=== PATIENT | female | born 1970 | race Caucasian/White ===

== ENCOUNTER 2021-10-10 15:35 | Outpatient (CLI) | payer BC, SELFPAY ==
--- NOTE | ~2021-10-10 | CT_ITS ---
EXAMINATION: CT sinus wo con EXAM DATE: 10/10/2021 16:01 INDICATION: J32.9 - Chronic sinusitis, unspecified. TECHNIQUE: Spiral CT of the sinuses was acquired in the axial plane. Coronal and sagittal reformatte d images were also reviewed. The dose-length product (DLP) for this examination was 276.23 mGy-cm. Iterative reconstruction (ASIR) was used as dose reduction technique. There is no prior study for co mparison. FINDINGS: The sinuses are normally developed. The sinuses are well aerated. The ostiomeatal unit s are patent. There is no sinus wall thickening. There is mild left nasal septal deviation. The mastoid air cells and middle ears are well aerated. External auditory canals are patent. The orbi ts and visualized soft tissues are unremarkable. IMPRESSION: Mild leftward nasal septal deviation. Clear sinuses. Reviewed, dictated and finalized at location A. T MANAGER ASSISTANT
== END 2021-10-10 15:36 | disposition home or self-care (01) ==
PROVIDERS: PCP Family Medicine; Visit Provider Otolaryngology
DX: J32.9 Chronic sinusitis, unspecified (principal); J34.2 Deviated nasal septum
CPT/HCPCS: 70486

== ENCOUNTER 2021-11-03 08:57 | Outpatient (CLI) | payer BC, SELFPAY ==
--- NOTE | ~2021-11-03 | MM_ITS ---
EXAMINATION: MM screening hola BI w [place] HISTORY: Screening TECHNIQUE: Craniocaudal and mediolateral oblique 3-D tomosynthesis images were obtained and synthetic 2-D images were generated. CAD analysis was submitted and interpreted. COMPARISON: No prior studies for comparison. BREAST PARENCHYMAL COMPOSITION: The breasts are heterogeneously dense, which may obscure small masses . FINDINGS: There are focal asymmetries in the upper outer quadrant of the right breast with possible a rchitectural distortion. There are no suspicious masses, calcifications or architectural distortion i n the left breast to suggest malignancy. IMPRESSION: 1. Focal right breast asymmetries with possible architectural distortion, upper outer quadrant. 2. Additional mammographic views and possible breast ultrasound are recommended. BI-RADS Category 0: Incomplete: Needs additional imaging evaluation. Reviewed, dictated and finalized at location A. IMPRESSION: 1. Focal right breast asymmetries with possible architectural distortion, upper outer quadrant. 2. Additional mammographic views and possible breast ultrasound are recommended . BI-RADS Category 0: Incomplete: Needs additional imaging evaluation.
== END 2021-11-03 08:58 | disposition home or self-care (01) ==
LOC: ANHIMG 09:00
PROVIDERS: PCP Family Medicine; Visit Provider Obstetrics & Gynecology
DX: Z12.31 Encounter for screening mammogram for malignant neoplasm of breast (principal); R92.8 Other abnormal and inconclusive findings on diagnostic imaging of breast
CPT/HCPCS: 77063; 77067

== ENCOUNTER 2025-04-06 02:17 | Day surgery (SDC) | payer BC, SELFPAY ==
[2025-04-05 09:45] VITALS: BMI 24.1
--- NOTE | 2025-04-05 09:46 | PC.NURSE ---
Report to the Outpatient Waiting Room, entrance under the green pavilion located off [facility], at time _1045_ on date _[id number]_. Planned Procedure Time: _1245_.? Time changes happen often and if your time is changed the preop area will call you the afternoon before. - You and your visitor will be asked to self-screen and do not enter if you have any COVID symptoms. Please call surgeon if you need to reschedule. - A mask is optional within the hospital at this time. Patients may have clear liquids (water, carbonated beverages, clear teas, apple juice) until 3 hours prior to surgery with a maximum of 20 ounces. - No food from midnight until time of surgery and no smoking, or chewing tobacco (or any form of nicotine). No chewing gum, candy or mints. Take only the following medications with a SIP of water on the morning of surgery: ___None___ DO NOT STOP ANY OF YOUR OTHER PRESCRIPTION MEDICATIONS PRIOR TO SURGERY EXCEPT THE FOLLOWING Hold all vitamins and supplements for 3 days per anesthesiologist. Medications to discontinue per physician Date to take last dose Please no make-up, nail rwandan, hairspray, perfume, deodorant, or body powder the day of surgery.? No jewelry (including any body piercings) or valuables the day of surgery, leave them at home.? Please take a shower or bath the night before, or the morning of, surgery with an antibacterial soap.? Wear comfortable, loose fitting clothing.? - Jewelry must be removed prior to entering the operating room.? Rings and piercings that are not removed may be cut off. - The hospital will not accept responsibility for valuables.? - Please leave all valuables, including medications, at home the day of surgery. If you are going home after surgery, a licensed armor reconnaissance vehicle driver must drive you home.? - NO public transportation without another adult if you receive anesthesia. - We recommend that an adult stay with you for 24 hours following discharge. - We also recommend that you do not drive, make important decision, drink alcoholic beverages, or take any drugs that were not prescribed by your health care provider for at least 24 hours after your discharge time. Follow any additional instructions given to you from your surgeon. Telephone instructions given to __Alisia___and asked if any additional questions and then verbalized understanding. Patient advised to call surgeon office or pre surgery nurse liaison [phone] if any additional questions.
--- NOTE | 2025-04-05 12:17 | PM.IMHP ---
H&P: HPI History of Present Illness Date/Time: 04/05/25 12:17 Chief Complaint: Postmenopausal bleeding Narrative: This is 54-year-old female with ultrasound shows a possible polyp versus uterine fibroid submucosally. There endometrial canal as 5mm crit which is greater than the 4mm allowed to postmenopausally she will thus undergo hysteroscopy dilatation curettage risks and benefits reviewed in the exclusive aspiration pneumonia, bleeding, transfusion, perforation injury to bowel, bladder, ureters, other internal organs with need for open laparotomy. She received the ACOG handout entitled hysteroscopy as well as dilatation curettage respectively. She had all questions answered. She asked to proceed Review of Systems Review of Systems: All systems reviewed & are unremarkable except as noted in HPI and below [facility] Social History Social History Smoking status: Never smoker Alcohol intake: current Alcohol use details: monthly Substance use: never Living arrangements: with family Spiritual care concerns: No Meds Home Medications and Allergies Home Medications ?Medication ?Instructions ?Recorded ?Confirmed ?Type No Home Medications 04/05/25 04/05/25 History Allergies Allergy/AdvReac Type Severity Reaction Status Date / Time Penicillins Allergy Unknown HIVES Verified 04/05/25 09:37 Exam Const: General: cooperative, healthy appearing and comfortable Nutritional Appearance: average body habitus Orientation/consciousness: oriented to person, oriented to place and oriented to time HENMT: Head: normal to inspection Resp: Effort & Inspection: normal respiratory effort Cardio: Rate: regular rate Rhythm: regular rhythm Heart sounds: S1 normal heart sound present and S2 normal heart sound present GI: Inspection: normal to inspection : External Female Exam: normal external appearance Speculum Exam - Vagina: normal appearance of the vagina Speculum Exam - Cervix: normal appearance of the cervix Bimanual exam- vagina & uterus: non-tender Bimanual Exam- Adnexa, other: normal adnexae Assessment and Plan Assessment and plan (1) Postmenopausal bleeding: Code(s): N95.0 - Postmenopausal bleeding Status: Acute Plan Proceed with hysteroscopy/dilatation curettage
--- NOTE | 2025-04-06 05:32 | WPDHPUPDATE1 ---
History and Physical Update Update Date/Time: 04/06/25 05:32 History and Physical has been reviewed, including an updated exam of the patient. There are NO changes in the patient's condition. Risks, benefits, and alternatives have been discussed and questions answered. Patient agrees to proceed with procedure.
[2025-04-06 11:13] VITALS: BP 100/66; PULSE 66; RESP 20; TEMP 36.7; O2SAT 99
[2025-04-06] MEDS: LACTATED RINGERS 1,000 ML 30 ML IV CONT (11:40)
[2025-04-06 11:44] LABS: Hematocrit 37.8 % (37.0-47.0); Hemoglobin 12.3 g/dL (12.0-15.0)
[2025-04-06] MEDS: ACETAMINOPHEN 500 MG TABLET 1000 MG PO (11:47)
[2025-04-06 12:06] LABS: BEDSIDEPREGUCG Negative (Negative)
--- NOTE | 2025-04-06 12:39 | WPDANESEPPF ---
Anes - Initial Pre Proc Eval Procedure: Operation Date: 04/06/25 12:45 Proposed Procedures p Hysteroscopy, Dilation and Curettage - Harley Marie MD Date/Time: 04/06/25 12:39 Surgeon: Harley Marie MD Pre Op Diagnosis: endometrial hyperplasia Patient Data Age: 54 Gender: F Height: 1.65 m Weight: 63.85 kg Last Vital Signs Temp 36.7 C 04/06/25 11:13 Pulse 66 04/06/25 11:13 Resp 20 04/06/25 11:13 BP 100/66 04/06/25 11:13 Pulse Ox 99 04/06/25 11:13 O2 Del Method Room Air 04/06/25 11:13 Allergies Allergy/AdvReac Type Severity Reaction Status Date / Time Penicillins Allergy Unknown HIVES Verified 04/06/25 11:40 Home Medications ?Medication ?Instructions ?Recorded ?Confirmed ?Type hydrocodone 5 mg-acetaminophen 325 1 tablet PO Q4H PRN pain #20 tabs 04/06/25 Rx mg tablet Laboratory Tests 04/06/25 04/06/25 11:13 11:28 Hgb 12.3 g/dL (12.0-15.0) Hct 37.8 % (37.0-47.0) POC Urine HCG, Qual Negative (Negative) Patient hx anesthesia problems: none Family hx anesthesia problems: none Results Review: All pre-operative results and documents have been reviewed as part of the pre-operative evaluation. [facility] Social History Social History Smoking status: Never smoker Alcohol intake: current Alcohol use details: monthly Substance use: never Living arrangements: with family Spiritual care concerns: No Anes - Eval Final PreProcedure Day of Procedure 04/06/25 12:39 Patient weight: normal Heart: regular rate and rhythm Lungs: clear to auscultation Airway: Mallampati scale class II Neurological: alert and oriented Last oral intake: >/= 8 hours ASA classification: II Emergent: no Anesthetic plan: proceed Anesthesia type and monitoring: general GIVS and standard monitoring Results Review: All pre-operative results and documents have been reviewed as part of the pre-operative evaluation. Informed Consent: The patient's anesthetic plan and its attendant risks and benefits were discussed with the patient/family/POA. Questions were solicited and answers provided to the satisfaction of the patient/family/POA.
[2025-04-06] MEDS: LIDOCAINE 1% LOCAL INJ 10 ML VIAL INFILTRATE (13:00)
--- NOTE | 2025-04-06 13:06 | S_PTH ---
PATIENT: Antolin Whittington LOC: [facility] U#:[id number] AGE/SX: 54/F ROOM: RE04/06/[address]: Harley Marie MD : 1970 BED: DIS: 04/06/2025 SPEC #: [id number] RECD: 04/09/25 07:15 STATUS: MAGAN RE #: [id number] HANNAH: 04/06/25 13:[address]: Harley Wade DEPT: [facility] Surgical RECD BY: Smith Vernon ENTERED: 04/09/25 07:16 SP TYPE: Surgical OTHR DR: Hilario Cunningham, Tissues: A - Endometrial Curettings Procedures: Hematoxylin and Eosin Stain Gross and Microscopic Level 4
[2025-04-06 13:15] VITALS: BP 95/55; PULSE 95; RESP 12; O2SAT 95
--- NOTE | 2025-04-06 13:15 | W.PM.PROC2 ---
Procedure Note - Detailed Date of Procedure 04/06/25 Pre-op Diagnosis endometrial hyperplasia Post-op Diagnosis Other (Uterine polyp) Procedure Performed Hysteroscopy/polypectomy/dilatation curettage Surgeon Harley Marie MD Anesthesia MAC and Local Indications 54-year-old female with thickened endometrium Findings Small what appeared to be uterine polyp uterus. Otherwise benign bland appearing endometrium Description of Procedure The patient is prepped draped in the normal sterile fashion placed in the dorsal lithotomy position. Under excellent IV sedation weighted speculum placed in posterior fornix vagina. Anterior lip of the cervix grasped with a single-tooth tenaculum 2.5cc 1% xylocaine anesthesia placed at 2, 4, 8, 10:00 a.m. of the cervix. Uterus sounded to 8cm. Serial dilatation fragmented dilators performed followed by passage of the 5mm visualizing hysteroscope using normal saline as visualizing medium. What appeared to be a small polyp was seen at the uterine cervix. This was reticulated away without difficulty the uterus was then scraped over the entire 360? with good grating sound was heard the instruments withdrawn the patient went recovery in satisfactory condition. All sponge, needle instrument counts were correct. There were no complications Estimated Blood Loss 5 Drains No Packing No Pathology Yes Complications No immediate complications Condition Stable Disposition PACU
[2025-04-06 13:45] VITALS: BP 95/56; PULSE 64
[2025-04-06 14:14] VITALS: BP 102/60; PULSE 46
== END 2025-04-06 14:18 | disposition home or self-care (01) ==
PROVIDERS: PCP Family Medicine; Visit Provider Obstetrics & Gynecology
PROC: 0U5B8ZZ Destruction of Endometrium, Via Natural or Artificial Opening Endoscopic (ICD-10-PCS; CPT 58563; principal; 2025-04-06 12:45)
DX: N95.0 Postmenopausal bleeding (principal); N84.0 Polyp of corpus uteri
CPT/HCPCS: 58558; 36415; 85014; 85018; 88305; A9270; J1100; J2003; J2250; J2270; J2405; J2704; J7120